=== PATIENT | female | born 1945 | race Caucasian/White ===

== ENCOUNTER 2021-05-10 04:29 | Inpatient (IN) | payer MEDICARE, OTHER ==
[~2021-05-10] VITALS: Ht 165.1 cm; Wt 99.6 kg
[2021-05-10 07:00] LABS: Basophils # (auto) 0 10 ^3/uL (0-0.2); Basophils % (auto) 0.5 % (0.0-2.0); Monocytes # (auto) 0.7 10 ^3/uL (0-1.3); Red Cell Distribution Width 15.9 % (11.8-14.3); White Blood Cell 7.6 10^3/uL (4.4-10.8)
[2021-05-10 07:04] LABS: Eosinophils # (auto) 0.1 10 ^3/uL (0-0.8); Eosinophils % (auto) 0.7 % (0.0-7.0); Hematocrit 33.9 % (36.0-46.0); Hemoglobin 10.7 g/dL (12.2-16.2); Lymphocytes % (auto) 26.4 % (10.0-50.0); Mean Corpuscular Hemoglobin 25.1 pg (28.0-32.0); Mean Corpuscular Hgb Conc. 31.4 g/dL (32.0-36.0); Monocytes % (auto) 9.8 % (0.0-12.0); Neutrophils # (auto) 4.8 10 ^3/uL (1.6-8.6); Neutrophils % (auto) 62.6 % (37.0-80.0); Nucleated Red Blood Cells % 0.2 %; Red Blood Cells 4.24 10^6/uL (4.0-5.20)
[2021-05-10 07:11] LABS: Albumin 3.9 g/dL (3.4-5.0); Calcium 10.2 mg/dL (8.5-10.1); Potassium 4.3 mmol/L (3.5-5.1)
[2021-05-10 07:21] LABS: BUN/Creatinine Ratio 14.1; Bilirubin, Total 0.7 mg/dL (0.2-1.0); Total Protein 7.7 g/dL (6.4-8.2)
[2021-05-10 07:51] LABS: Urine Bacteria NONE SEEN /hpf (None Seen); Urine Blood Negative /uL (Negative); Urine Mucus FEW (None Seen); Urine WBC 3 /hpf (0 - 5)
[2021-05-10] MEDS ORDERED: SODIUM CHLORIDE 0.9% 1,000 ML IV ONE ×3 (12:30→21:00)
[2021-05-10] MEDS ORDERED: InsuLIN REG 1unit/0.01ml Soln (100units/ml) IV ONE (12:30)
[2021-05-10] MEDS ORDERED: MORPHINE SULFATE INJECTION 2 MG/ML SYRG IV PRN (21:00)
[2021-05-10] MEDS ORDERED: DEXTROSE (50%) 50ML SYRG IV PRN ×2 (21:00→21:30)
[2021-05-10] MEDS ORDERED: NITROGLYCERIN 0.4 MG SL TAB SL PRN (21:00)
[2021-05-10] MEDS ORDERED: GABAPENTIN 300 MG CAP PO PRN (21:15)
[2021-05-10] MEDS ORDERED: ACCU-CHEK COMFORT CURVE STRIP VI SCH (22:00)
[2021-05-10] MEDS ORDERED: InsuLIN REG 1unit/0.01ml Soln (100units/ml) SC SCH ×2 (22:00)
[2021-05-11] MEDS: INSULIN LANTUS (GLARGINE) 1 /0.01ml (100units/ml) SC SCH ×3 (04:20→23:51)
[2021-05-11] MEDS: ACCU-CHEK COMFORT CURVE STRIP VI SCH ×9 (04:20→23:40)
[2021-05-11] MEDS: APIXABAN 5 MG TAB PO SCH ×3 (04:20→23:52)
[2021-05-11] MEDS ORDERED: InsuLIN REG 1unit/0.01ml Soln (100units/ml) SC SCH ×2 (07:00)
[2021-05-11 07:21] LABS: Basophils # (auto) 0.1 10 ^3/uL (0-0.2); Basophils % (auto) 0.8 % (0.0-2.0); Eosinophils # (auto) 0.1 10 ^3/uL (0-0.8); Hematocrit 30.8 % (36.0-46.0); Lymphocytes % (auto) 27.3 % (10.0-50.0); Mean Corpuscular Hemoglobin 25.6 pg (28.0-32.0); Mean Corpuscular Hgb Conc. 32.3 g/dL (32.0-36.0); Mean Corpuscular Volume 79.1 fL (80.0-100.0); Monocytes # (auto) 0.7 10 ^3/uL (0-1.3); Monocytes % (auto) 9.7 % (0.0-12.0); Neutrophils # (auto) 4.5 10 ^3/uL (1.6-8.6); Neutrophils % (auto) 61.2 % (37.0-80.0); Red Blood Cells 3.89 10^6/uL (4.0-5.20); Red Cell Distribution Width 15.5 % (11.8-14.3); White Blood Cell 7.4 10^3/uL (4.4-10.8)
[2021-05-11 07:39] LABS: Albumin 3.3 g/dL (3.4-5.0); Calcium 9.7 mg/dL (8.5-10.1); Potassium 3.4 mmol/L (3.5-5.1)
[2021-05-11 07:41] LABS: BUN/Creatinine Ratio 15.2
[2021-05-11 07:44] LABS: Bilirubin, Total 0.8 mg/dL (0.2-1.0); Total Protein 6.6 g/dL (6.4-8.2)
[2021-05-11] MEDS ORDERED: INSULIN LANTUS (GLARGINE) 1 /0.01ml (100units/ml) SC SCH (10:00)
[2021-05-11] MEDS ORDERED: ENOXAPARIN SOD 40 MG/0.4 ML SYRINGE SC SCH ×2 (10:00)
[2021-05-11] MEDS: DIGOXIN 0.125 MG TAB PO SCH (10:11)
[2021-05-11] MEDS: METOPROLOL SUCCINATE XL 50 MG TAB PO SCH (10:11)
[2021-05-11] MEDS ORDERED: InsuLIN R (HUMAN) 100 UNITS in SODIUM CHL 0.9% 99 ML IV SCH (11:30)
[2021-05-11] MEDS ORDERED: POTASSIUM CHL 10MEQ/50ML 50 ML IV PRN (11:30)
[2021-05-11] MEDS ORDERED: INSULIN LISPRO (HUMAN) 100 UNITS/ML ML SC ONE (11:30)
[2021-05-11] MEDS ORDERED: DEXTROSE (50%) 50ML SYRG IV PRN ×2 (11:30→21:30)
[2021-05-11 13:30] LABS: BUN/Creatinine Ratio 14.5; Calcium 9.6 mg/dL (8.5-10.1); Magnesium 2.9 mg/dL (1.6-2.6); Phosphorus 2.3 mg/dL (2.5-4.90)
[2021-05-11] MEDS ORDERED: POTASSIUM CHL 20 Meq TABLET PO ONE (14:45)
[2021-05-11] MEDS ORDERED: ERGOCALCIFEROL 50,000 UNIT(1.25MG) CAP PO SCH (16:00)
[2021-05-11 17:15] LABS: Albumin 3.2 g/dL (3.4-5.0); BUN/Creatinine Ratio 15.2
[2021-05-11 17:17] LABS: Bilirubin, Total 0.5 mg/dL (0.2-1.0); Total Protein 6.6 g/dL (6.4-8.2)
[2021-05-11 18:16] LABS: Potassium 2.8 mmol/L (3.5-5.1)
[2021-05-11 20:11] LABS: BUN/Creatinine Ratio 17.4; Calcium 9.7 mg/dL (8.5-10.1); Potassium 3.4 mmol/L (3.5-5.1)
[2021-05-11 22:00] VITALS: BP 120/54
[2021-05-11] MEDS: InsuLIN REG 1unit/0.01ml Soln (100units/ml) SC SCH (23:50)
[2021-05-12 05:00] VITALS: BP 132/56
[2021-05-12] MEDS: InsuLIN REG 1unit/0.01ml Soln (100units/ml) SC SCH ×5 (06:19→21:18)
[2021-05-12] MEDS: ACCU-CHEK COMFORT CURVE STRIP VI SCH ×4 (06:19→21:17)
[2021-05-12 06:58] LABS: BUN/Creatinine Ratio 16.7; Calcium 8.3 mg/dL (8.5-10.1); Potassium 3.9 mmol/L (3.5-5.1)
[2021-05-12 08:55] LABS: Basophils # (auto) 0.1 10 ^3/uL (0-0.2); Eosinophils # (auto) 0.1 10 ^3/uL (0-0.8); Eosinophils % (auto) 2.5 % (0.0-7.0); Hematocrit 29.7 % (36.0-46.0); Hemoglobin 9.8 g/dL (12.2-16.2); Lymphocytes # (auto) 2.8 10 ^3/uL (0.4-5.4); Lymphocytes % (auto) 48.4 % (10.0-50.0); Mean Corpuscular Hemoglobin 25.8 pg (28.0-32.0); Mean Corpuscular Hgb Conc. 32.9 g/dL (32.0-36.0); Mean Corpuscular Volume 78.2 fL (80.0-100.0); Monocytes # (auto) 0.5 10 ^3/uL (0-1.3); Monocytes % (auto) 9.4 % (0.0-12.0); Neutrophils # (auto) 2.2 10 ^3/uL (1.6-8.6); Neutrophils % (auto) 38.7 % (37.0-80.0); Nucleated Red Blood Cells % 0.2 %; Red Cell Distribution Width 15.5 % (11.8-14.3); White Blood Cell 5.8 10^3/uL (4.4-10.8)
[2021-05-12 09:00] VITALS: BP 114/67
[2021-05-12] MEDS: METOPROLOL SUCCINATE XL 50 MG TAB PO SCH (10:22)
[2021-05-12] MEDS: DIGOXIN 0.125 MG TAB PO SCH (10:23)
[2021-05-12] MEDS: APIXABAN 5 MG TAB PO SCH ×2 (10:23→21:07)
[2021-05-12] MEDS: INSULIN LANTUS (GLARGINE) 1 /0.01ml (100units/ml) SC SCH ×2 (10:26→21:17)
[2021-05-12] MEDS ORDERED: DIGO1TAB48 PO (10:41)
[2021-05-12] MEDS ORDERED: APIX5TAB PO (10:41)
[2021-05-12] MEDS ORDERED: EMPA1TAB PO (10:41)
[2021-05-12] MEDS ORDERED: ATO40T PO (10:41)
[2021-05-12] MEDS ORDERED: ERGO1CAP23 PO (10:41)
[2021-05-12] MEDS ORDERED: METO-6 PO (10:41)
[2021-05-12] MEDS ORDERED: METF-371 PO (10:41)
[2021-05-12 11:02] LABS: Cholesterol 103 mg/dL (< 200)
[2021-05-12 11:05] LABS: HDL Cholesterol 31 mg/dL (40-59); LDL Cholesterol 58 mg/dL (< 100); Triglycerides 80 mg/dL (< 150)
[2021-05-12] MEDS ORDERED: INSULIN LISPRO (HUMAN) 100 UNITS/ML ML SC ONE (11:30)
[2021-05-12 13:00] VITALS: BP 113/59
[2021-05-12 16:58] VITALS: BP 116/48
[2021-05-12 22:00] VITALS: BP 107/44
[2021-05-13 00:04] VITALS: BP_SYST 88
[2021-05-13 05:00] VITALS: BP 110/54
[2021-05-13] MEDS: ACCU-CHEK COMFORT CURVE STRIP VI SCH ×2 (05:52→11:54)
[2021-05-13] MEDS: InsuLIN REG 1unit/0.01ml Soln (100units/ml) SC SCH (06:03)
[2021-05-13 08:28] VITALS: BP 102/48
[2021-05-13] MEDS: APIXABAN 5 MG TAB PO SCH (09:57)
[2021-05-13] MEDS: INSULIN LANTUS (GLARGINE) 1 /0.01ml (100units/ml) SC SCH (09:57)
[2021-05-13] MEDS: METOPROLOL SUCCINATE XL 50 MG TAB PO SCH (09:57)
[2021-05-13] MEDS ORDERED: InsuLIN REG 1unit/0.01ml Soln (100units/ml) SC SCH (11:30)
[2021-05-13 12:33] VITALS: BP 113/51
== END 2021-05-13 16:15 | disposition home health service (06) | DRG 637 ==
LOC: EDBD 04:29 → ER 04:29 → TELE 20:50 → TELE-CENTR 05-11 22:42 → CENTRAL 05-12 13:49
PROVIDERS: ADMIT Internal Medicine; ATTEND Internal Medicine
DX: E11.10 Type 2 diabetes mellitus with ketoacidosis without coma (principal); J96.01 Acute respiratory failure with hypoxia; N17.0 Acute kidney failure with tubular necrosis; E86.0 Dehydration; D64.9 Anemia, unspecified; I10 Essential (primary) hypertension; K21.9 Gastro-esophageal reflux disease without esophagitis; I48.91 Unspecified atrial fibrillation; Z96.651 Presence of right artificial knee joint; E66.9 Obesity, unspecified; R26.2 Difficulty in walking, not elsewhere classified; Z20.822 Contact with and (suspected) exposure to COVID-19; Z90.710 Acquired absence of both cervix and uterus; Z90.49 Acquired absence of other specified parts of digestive tract; Z68.36 Body mass index [BMI] 36.0-36.9, adult
CPT/HCPCS: 36415; 36600; 70450; 71045; 72192; 80048; 80053; 80061; 81001; 82010; 82043; 82306; 82805; 82962; 83036; 83735; 83930; 84100; 84439; 84443; 84484; 85025; 87040; 87426; 93005; 96361; 96372; 96374; 97163; G0378; J1815